=== PATIENT | female | born 1960 | race Caucasian/White ===

== ENCOUNTER → 2023-04-19 11:54 | Outpatient (BNVA) | payer OTHER, SELFPAY | PROVIDERS: Visit Provider Nurse Practitioner Family | DX: R39.9 Unspecified symptoms and signs involving the genitourinary system (principal) | CPT/HCPCS: 81000; 87086 ==

== ENCOUNTER 2024-04-03 05:28 | Emergency (ER) | payer OTHER, SELFPAY ==
[2024-04-03 05:32] VITALS: BP 162/91; PULSE 74; RESP 16; TEMP 36.8; O2SAT 99; BMI 27.4
--- NOTE | 2024-04-03 05:42 | CTR_ITS ---
PROCEDURE INFORMATION: Exam: CT Abdomen And Pelvis Without Contrast Exam date and time: 04/03/2024 5:51 AM Age: 63 years old Clinical indication: Abdominal pain; Right; Prior surgery; Surgery date: 6+ months; Surgery type: Gastric bypass; Patient HX: C/O RT flank pain with hematuria; Additional info: Right flank pain hematuria TECHNIQUE: Imaging protocol: Computed tomography of the abdomen and pelvis without contrast. Radiation optimization: All CT scans at this facility use at least one of these dose optimization techniques: automated exposure control; mA and/or kV adjustment per patient size (includes targeted exams where dose is matched to clinical indication); or iterative reconstruction. COMPARISON: No relevant prior studies available. RADIATION DOSE METRICS: Total DLP (mGy-cm): 568.62 FINDINGS: Lungs: Visualized portions lung bases included appear clear bilaterally. Liver: Noncontrasted liver unremarkable. Small elongated hypodense structure or collection along anterior aspect medial segment left liver lobe extending toward anterior falciform ligament region between anterior liver and anterior abdominal wall/lower chest wall measured about 3.3 x 1.0 x 3.9 cm, of uncertain cause, possibly small loculated fluid collection, exophytic or partially exophytic capsular or pericapsular lesion or collection of liver, or other process. Otherwise, no large free abdominal or pelvic fluid collections seen. No free intraperitoneal air seen. Gallbladder and bile ducts: Cholelithiasis with evidence of at least 1 large gallstone within gallbladder. Possible mild wall thickening of gallbladder. No obvious pericholecystic fluid seen. Common duct appears prominent measured at perhaps 10-11 mm across. Mild prominence main, central intrahepatic bile ducts. Pancreas: Noncontrasted pancreas appears perhaps slightly atrophic, fatty. Spleen: Noncontrasted spleen unremarkable. Adrenal glands: Noncontrasted adrenals unremarkable. Kidneys and ureters: No calcific stone seen of visualized portions kidneys, ureters bilaterally, nor urinary bladder. Portions of ureters not well visualized. Perhaps minimal relative dilation right renal collecting system, right renal pelvis, portions of right ureter, and vesicoureteral reflux, recently passed stone, or other process possible. Suggestion of mild wall thickening right renal pelvis, right ureter. Correlate for pyeloureteritis, or other process. No perinephric stranding seen bilaterally. Tiny hypodense focus lower left kidney, not otherwise further characterized. Stomach and bowel: Diverticula of colon without current radiographic evidence of acute diverticulitis. Postoperative changes stomach. Moderate stool and gas of the colon. Bowel pattern appears nonobstructive. Appendix: Appendix not distinctly identified. No obvious acute appendicitis seen. Intraperitoneal space: Small elongated hypodense structure or collection along anterior aspect medial segment left liver lobe extending toward anterior falciform ligament region between anterior liver and anterior abdominal wall/lower chest wall measured about 3.3 x 1.0 x 3.9 cm, of uncertain cause, possibly small loculated fluid collection, exophytic or partially exophytic capsular or pericapsular lesion or collection of liver, or other process. Otherwise, no large free abdominal or pelvic fluid collections seen. No free intraperitoneal air seen. Vasculature: Atherosclerotic disease. No aneurysm seen abdominal aorta. Lymph nodes: Scattered small lymph nodes, nonspecific. Urinary bladder: Urinary bladder appears partly filled. Evidence of wall thickening of urinary bladder. Reproductive: Uterus not identified. Correlate for prior hysterectomy other process. Bones/joints: Degenerative changes spine. Soft tissues: Small fat containing umbilical/paraumbilical hernia. CT/CT kidney stone [id number] IMPRESSION: 1. No calcific stone seen of visualized portions kidneys, ureters bilaterally, nor urinary bladder. Portions of ureters not well visualized. Perhaps minimal relative dilation right renal collecting system, right renal pelvis, portions of right ureter, and vesicoureteral reflux, recently passed stone, or other process possible. Suggestion of mild wall thickening right renal pelvis, right ureter. Correlate for pyeloureteritis, or other process. 2. Wall thickening urinary bladder. Correlate for infection inflammation, cystitis, neoplasm, or other process. 3. Cholelithiasis. Possible wall thickening gallbladder. Prominence of common duct. Ultrasound scan may be helpful, if indicated. 4. Small elongated hypodense structure or collection along anterior aspect medial segment left liver lobe extending toward anterior falciform ligament region between anterior liver and anterior abdominal wall/lower chest wall measured about 3.3 x 1.0 x 3.9 cm, of uncertain cause, possibly small loculated fluid collection, exophytic or partially exophytic capsular or pericapsular lesion or collection of liver, or other process. 5. Diverticula of colon without current radiographic evidence of acute diverticulitis. 6. Please see body of report for additional findings.
--- NOTE | 2024-04-03 05:51 | W.ED.FEMALGU ---
Documented by User: Roberto Fulton DO 04/03/24 20:40 HPI - Female Genitourinary General: Chief complaint: Urogenital-Female Stated complaint: blood urine clots pressure back pain r side Time Seen by Provider: 04/03/24 05:42 History of Present Illness: 63-year-old female with a history of kidney stones and kidney infections. She presents with right sided flank, lower back, and pelvic pain since yesterday. She noted around 2 AM that she had blood in her urine. She passed some clots this morning, bit later. No fever. No vomiting. Rates her pain at an 8. She took Tylenol at home with mild improvement. She has a history of multiple belly surgeries as well. Associated symptoms: Reports abdominal pain; Deny headache(s) or nausea Review of Systems Const: Denies: fever(s), chills or body aches Eyes: Denies: change in vision Card: Denies: chest pain or palpitations Resp: Denies: dyspnea, productive cough, non-productive cough or wheezing GI: Reports: abdominal pain; Denies: nausea, vomiting, diarrhea or hematochezia : Reports: flank pain, difficulty voiding, dysuria, urinary frequency and hematuria Musc: Reports: back pain Skin/Breast: Denies: rash Neuro: Denies: headache(s), weakness in extremities, dizziness or confusion Physical Exam Const: COMMON NORMALS: no acute distress GENERAL APPEARANCE: cooperative; not ill appearing and not frail appearing HENMT: COMMON NORMALS: normocephalic, atraumatic and Normal external nose present HEAD & SCALP: normocephalic and atraumatic FACE & SINUS: normal facial exam and face symmetric NOSE: Normal external nose present Eye: COMMON NORMALS: Equal, round and reactive pupils present and EOMs intact bilaterally PUPIL: Yes Equal, round and reactive pupils present Neck/C-Spine: GENERAL: Yes trachea midline Chest: CHEST: Yes Symmetrical chest wall rise Resp: COMMON NORMALS: normal respiratory effort, No retractions, No use of accessory muscles and clear to auscultation bilaterally AUSCULTATION: clear to auscultation bilaterally Cardio: COMMON NORMALS: regular rate and regular rhythm RATE: regular rate RHYTHM: regular rhythm GI: COMMON NORMALS: Normal to inspection, nondistended, normoactive bowel sounds present PALPATION: Yes Tenderness to palpation present (GI) Details: RLQ : BLADDER/KIDNEY EXAM: Yes CVA tenderness on the right Back/Pelvis: GENERAL BACK: Yes CVA tenderness Extremity: COMMON NORMALS: no pedal edema Neuro: VALDEMAR COMA SCALE: document GCS findings [place] coma scale eye opening: Spontaneous [place] coma scale verbal response: Orientated Valdemar coma scale motor response: Obey commands [place] coma scale total score: 15 SENSORY EXAM: Yes extremities (intact) Psych: COMMON NORMALS: speech normal SPEECH: Yes normal speech Skin: COMMON NORMALS: no rashes or lesions noted GENERAL SKIN EXAM: no rashes or lesions noted Course Vital Signs: Vital signs: Vital Signs Temperature 98.2 F 04/03/24 09:10 Pulse Rate 70 04/03/24 09:10 Respiratory Rate 15 04/03/24 09:10 Blood Pressure 162/91 04/03/24 09:10 Pulse Oximetry 94 04/03/24 09:10 Oxygen Delivery Me thod Room Air 04/03/24 05:32 MDM - Female Medical Decision Making 63-year-old female with right-sided flank, lower back, and pelvic pain. She is afebrile. She has a history of hematuria as well. Urinalysis, laboratory and CT are pending. She will be checked out at shift change. Lab Data 04/03/24 05:45 04/03/24 06:05 Radiology Impressions Abdomen/Pelvis CT 04/03/24 05:42 IMPRESSION: 1. No calcific stone seen of visualized portions kidneys, ureters bilaterally, nor urinary bladder. Portions of ureters not well visualized. Perhaps minimal relative dilation right renal collecting system, right renal pelvis, portions of right ureter, and vesicoureteral reflux, recently passed stone, or other process possible. Suggestion of mild wall thickening right renal pelvis, right ureter. Correlate for pyeloureteritis, or other process. 2. Wall thickening urinary bladder. Correlate for infection inflammation, cystitis, neoplasm, or other process. 3. Cholelithiasis. Possible wall thickening gallbladder. Prominence of common duct. Ultrasound scan may be helpful, if indicated. 4. Small elongated hypodense structure or collection along anterior aspect medial segment left liver lobe extending toward anterior falciform ligament region between anterior liver and anterior abdominal wall/lower chest wall measured about 3.3 x 1.0 x 3.9 cm, of uncertain cause, possibly small loculated fluid collection, exophytic or partially exophytic capsular or pericapsular lesion or collection of liver, or other process. 5. Diverticula of colon without current radiographic evidence of acute diverticulitis. 6. Please see body of report for additional findings. Laboratory Results WBC 12.38 10^3/uL (3.29-11.43) H 04/03/24 05:45 RBC 4.25 10^6/uL (3.85-5.65) 04/03/24 05:45 Hgb 13.00 g/dL (11.27-16.99) 04/03/24 05:45 Hct 40.3 % (36-47) 04/03/24 05:45 MCV 94.8 fl (85-98) 04/03/24 05:45 MCH 30.6 pg (27-33) 04/03/24 05:45 MCHC 32.3 g/dL (30-55) 04/03/24 05:45 RDW 13.6 % (12.1-15.1) 04/03/24 05:45 Plt Count 254 10^3/cmm (157-399) 04/03/24 05:45 MPV 9.3 fL (7.4-10.4) 04/03/24 05:45 Neut % (Auto) 67.5 % 04/03/24 05:45 Lymph % (Auto) 21.1 % 04/03/24 05:45 Hawkins % (Auto) 6.9 % 04/03/24 05:45 Eos % (Auto) 3.5 % 04/03/24 05:45 Baso % (Auto) 0.6 % 04/03/24 05:45 Neut # (Auto) 8.37 10^3/uL (1.8-7.7) H 04/03/24 05:45 Lymph # (Auto) 2.6 10^3/uL (0.8-4.8) 04/03/24 05:45 Hawkins # (Auto) 0.9 10^3/uL (0.2-0.9) 04/03/24 05:45 Eos # (Auto) 0.4 10^3/uL (0.0-0.8) 04/03/24 05:45 Baso # (Auto) 0.1 10^3/uL (0.0-0.1) 04/03/24 05:45 Nucleated RBC % (auto) 0 % 04/03/24 05:45 Nucleated RBCs # 0.0 /100WBC 04/03/24 05:45 Sodium 136 mmol/L (136-145) 04/03/24 06:05 Potassium 4.0 mmol/L (3.5-5.1) 04/03/24 06:05 Chloride 102 mmol/L (98-107) 04/03/24 06:05 Carbon Dioxide 26 mmol/L (22-29) 04/03/24 06:05 Anion Gap 12.0 (5-19) 04/03/24 06:05 BUN 13 mg/dL (8-23) 04/03/24 06:05 Creatinine 0.5 mg/dL (0.5-0.9) 04/03/24 06:05 GFR Calculation 124.6 mL/min (90-130) 04/03/24 06:05 Glucose 99 mg/dL (65-115) 04/03/24 06:05 Calculated Osmolality 282 mOsm/kg (285-295) L 04/03/24 06:05 Calcium 8.9 mg/dL (8.5-10.5) 04/03/24 06:05 Total Bilirubin 0.2 mg/dL (0.15-1.2) 04/03/24 06:05 AST 23 U/L (0-32) 04/03/24 06:05 ALT 21 U/L (0-33) 04/03/24 06:05 Alkaline Phosphatase 100 U/L (35-105) 04/03/24 06:05 C-Reactive Protein 3.0 mg/L (0.0-4.9) 04/03/24 06:05 Total Protein 6.4 g/dL (6.6-8.7) L 04/03/24 06:05 Albumin 3.9 g/dL (3.5-5.2) 04/03/24 06:05 Globulin 2.5 g/dL (1.3-4.6) 04/03/24 06:05 Lipase 25 U/L (13-60) 04/03/24 06:05 Urine Color Yellow (Yellow) 04/03/24 05:45 Urine Appearance Cloudy (CLEAR) A 04/03/24 05:45 Urine pH 6.5 (5-7) 04/03/24 05:45 Ur Specific [place] 1.005 (1.005-1.030) 04/03/24 05:45 Urine Protein 1+ (Negative) H 04/03/24 05:45 Urine Glucose (UA) Norm (Normal) 04/03/24 05:45 Urine Ketones Negative (Negative) 04/03/24 05:45 Urine Blood 3+ (Negative) H 04/03/24 05:45 Urine Nitrate Negative (Negative) 04/03/24 05:45 Urine Bilirubin Neg (Negative) 04/03/24 05:45 Urine Urobilinogen Neg mg/dL (Negative) 04/03/24 05:45 Ur Leukocyte Esterase 2+ (Negative) H 04/03/24 05:45 Urine RBC 5-10 /hpf (0-2) H 04/03/24 05:45 Urine WBC 25-40 /hpf (0-5) H 04/03/24 05:45 Ur Squamous Epith Cells 0-4 /hpf (0-5) H 04/03/24 05:45 Amorphous Sediment Not Reportable 04/03/24 05:45 Urine Bacteria 1+ /hpf (NONE) H 04/03/24 05:45 Urine Mucus Trace /hpf 04/03/24 05:45 Discharge Plan Discharge Patient Disposition: Home Clinical Impression: Cystitis Condition: Stable Prescriptions: New Cipro 250 mg tablet 250 mg PO BID Qty: 14 0RF hydrocodone-acetaminophen 5-325 mg tablet 1 tab PO Q6H PRN (Reason: pain) Qty: 10 0RF No Action azithromycin 500 mg tablet 500 mg PO DAILY 5 Days Qty: 5 0RF naproxen sodium [Aleve] 220 mg capsule 220 mg PO Q12H PRN Discharge Orders: Discharge ED (Routine); Ordered 04/03/24 Ordered By: Jimmy Schmidt Referrals: Yoko Blake DO [Primary Care Provider] - Discharge Diet: Usual diet Discharge Activity: Increase activity as tolerated Patient Instructions: Urinary Tract Infection in Women (ED), Opioid Safety, Pain Management Activity Restrictions/Additional Instructions: Thank you for choosing [facility] for your healthcare needs today. It is very important that you follow up as instructed or that you return to the Emergency Department should you have concerns or if your condition changes or worsens in any way. You are found to have a bladder infection. There is no sign of any stones in the kidneys or ureters. Recommend you start oral antibiotic 1 pill twice a day take your first pill this morning. Use pain medications as needed. Coding Level of Care Code ED Practice Performance Manager for [facility] Documented by User: Jimmy Schmidt DO 04/03/24 08:54 HPI - Female Genitourinary General: Chief complaint: Urogenital-Female Stated complaint: blood urine clots pressure back pain r side Time Seen by Provider: 04/03/24 05:42 Physical Exam Neuro: VALDEMAR COMA SCALE: document GCS findings Valdemar coma scale total score: 15 Course Vital Signs: Vital signs: Vital Signs Temperature 98.2 F 04/03/24 09:10 Pulse Rate 70 04/03/24 09:10 Respiratory Rate 15 04/03/24 09:10 Blood Pressure 162/91 04/03/24 09:10 Pulse Oximetry 94 04/03/24 09:10 Oxygen Delivery Me thod Room Air 04/03/24 05:32 MDM - Female Medical Decision Making 63-year-old female with right-sided flank, lower back, and pelvic pain. She is afebrile. She has a history of hematuria as well. Urinalysis, laboratory and CT are pending. She will be checked out at shift change. Care assumed at change of shift. CT completed no sign of ureteral obstruction, no hydronephrosis. Patient does have cystitis. Dr. Fulton had ordered ceftriaxone. Discharge home on Cipro 250 p.o. twice daily. She is having quite a bit of flank pain. Hydrocodone as needed for pain increase fluids return if has worsening problems. Medical Records I reviewed the patient's medical records. Lab Data I reviewed the patient's lab results. 04/03/24 05:45 04/03/24 06:05 Radiology Impressions Abdomen/Pelvis CT 04/03/24 05:42 IMPRESSION: 1. No calcific stone seen of visualized portions kidneys, ureters bilaterally, nor urinary bladder. Portions of ureters not well visualized. Perhaps minimal relative dilation right renal collecting system, right renal pelvis, portions of right ureter, and vesicoureteral reflux, recently passed stone, or other process possible. Suggestion of mild wall thickening right renal pelvis, right ureter. Correlate for pyeloureteritis, or other process. 2. Wall thickening urinary bladder. Correlate for infection inflammation, cystitis, neoplasm, or other process. 3. Cholelithiasis. Possible wall thickening gallbladder. Prominence of common duct. Ultrasound scan may be helpful, if indicated. 4. Small elongated hypodense structure or collection along anterior aspect medial segment left liver lobe extending toward anterior falciform ligament region between anterior liver and anterior abdominal wall/lower chest wall measured about 3.3 x 1.0 x 3.9 cm, of uncertain cause, possibly small loculated fluid collection, exophytic or partially exophytic capsular or pericapsular lesion or collection of liver, or other process. 5. Diverticula of colon without current radiographic evidence of acute diverticulitis. 6. Please see body of report for additional findings. Laboratory Results WBC 12.38 10^3/uL (3.29-11.43) H 04/03/24 05:45 RBC 4.25 10^6/uL (3.85-5.65) 04/03/24 05:45 Hgb 13.00 g/dL (11.27-16.99) 04/03/24 05:45 Hct 40.3 % (36-47) 04/03/24 05:45 MCV 94.8 fl (85-98) 04/03/24 05:45 MCH 30.6 pg (27-33) 04/03/24 05:45 MCHC 32.3 g/dL (30-55) 04/03/24 05:45 RDW 13.6 % (12.1-15.1) 04/03/24 05:45 Plt Count 254 10^3/cmm (157-399) 04/03/24 05:45 MPV 9.3 fL (7.4-10.4) 04/03/24 05:45 Neut % (Auto) 67.5 % 04/03/24 05:45 Lymph % (Auto) 21.1 % 04/03/24 05:45 Hawkins % (Auto) 6.9 % 04/03/24 05:45 Eos % (Auto) 3.5 % 04/03/24 05:45 Baso % (Auto) 0.6 % 04/03/24 05:45 Neut # (Auto) 8.37 10^3/uL (1.8-7.7) H 04/03/24 05:45 Lymph # (Auto) 2.6 10^3/uL (0.8-4.8) 04/03/24 05:45 Hawkins # (Auto) 0.9 10^3/uL (0.2-0.9) 04/03/24 05:45 Eos # (Auto) 0.4 10^3/uL (0.0-0.8) 04/03/24 05:45 Baso # (Auto) 0.1 10^3/uL (0.0-0.1) 04/03/24 05:45 Nucleated RBC % (auto) 0 % 04/03/24 05:45 Nucleated RBCs # 0.0 /100WBC 04/03/24 05:45 Sodium 136 mmol/L (136-145) 04/03/24 06:05 Potassium 4.0 mmol/L (3.5-5.1) 04/03/24 06:05 Chloride 102 mmol/L (98-107) 04/03/24 06:05 Carbon Dioxide 26 mmol/L (22-29) 04/03/24 06:05 Anion Gap 12.0 (5-19) 04/03/24 06:05 BUN 13 mg/dL (8-23) 04/03/24 06:05 Creatinine 0.5 mg/dL (0.5-0.9) 04/03/24 06:05 GFR Calculation 124.6 mL/min (90-130) 04/03/24 06:05 Glucose 99 mg/dL (65-115) 04/03/24 06:05 Calculated Osmolality 282 mOsm/kg (285-295) L 04/03/24 06:05 Calcium 8.9 mg/dL (8.5-10.5) 04/03/24 06:05 Total Bilirubin 0.2 mg/dL (0.15-1.2) 04/03/24 06:05 AST 23 U/L (0-32) 04/03/24 06:05 ALT 21 U/L (0-33) 04/03/24 06:05 Alkaline Phosphatase 100 U/L (35-105) 04/03/24 06:05 C-Reactive Protein 3.0 mg/L (0.0-4.9) 04/03/24 06:05 Total Protein 6.4 g/dL (6.6-8.7) L 04/03/24 06:05 Albumin 3.9 g/dL (3.5-5.2) 04/03/24 06:05 Globulin 2.5 g/dL (1.3-4.6) 04/03/24 06:05 Lipase 25 U/L (13-60) 04/03/24 06:05 Urine Color Yellow (Yellow) 04/03/24 05:45 Urine Appearance Cloudy (CLEAR) A 04/03/24 05:45 Urine pH 6.5 (5-7) 04/03/24 05:45 Ur Specific [place] 1.005 (1.005-1.030) 04/03/24 05:45 Urine Protein 1+ (Negative) H 04/03/24 05:45 Urine Glucose (UA) Norm (Normal) 04/03/24 05:45 Urine Ketones Negative (Negative) 04/03/24 05:45 Urine Blood 3+ (Negative) H 04/03/24 05:45 Urine Nitrate Negative (Negative) 04/03/24 05:45 Urine Bilirubin Neg (Negative) 04/03/24 05:45 Urine Urobilinogen Neg mg/dL (Negative) 04/03/24 05:45 Ur Leukocyte Esterase 2+ (Negative) H 04/03/24 05:45 Urine RBC 5-10 /hpf (0-2) H 04/03/24 05:45 Urine WBC 25-40 /hpf (0-5) H 04/03/24 05:45 Ur Squamous Epith Cells 0-4 /hpf (0-5) H 04/03/24 05:45 Amorphous Sediment Not Reportable 04/03/24 05:45 Urine Bacteria 1+ /hpf (NONE) H 04/03/24 05:45 Urine Mucus Trace /hpf 04/03/24 05:45 All radiology interpretation(s) finalized by discharge Discharge Plan Discharge Patient Disposition: Home Clinical Impression: Cystitis Condition: Stable Prescriptions: New Cipro 250 mg tablet 250 mg PO BID Qty: 14 0RF hydrocodone-acetaminophen 5-325 mg tablet 1 tab PO Q6H PRN (Reason: pain) Qty: 10 0RF No Action azithromycin 500 mg tablet 500 mg PO DAILY 5 Days Qty: 5 0RF naproxen sodium [Aleve] 220 mg capsule 220 mg PO Q12H PRN Discharge Orders: Discharge ED (Routine); Ordered 04/03/24 Ordered By: Jimmy Schmidt Referrals: Yoko Blake, [Primary Care Provider] - Discharge Diet: Usual diet Discharge Activity: Increase activity as tolerated Patient Instructions: Urinary Tract Infection in Women (ED), Opioid Safety, Pain Management Activity Restrictions/Additional Instructions: Thank you for choosing [facility] for your healthcare needs today. It is very important that you follow up as instructed or that you return to the Emergency Department should you have concerns or if your condition changes or worsens in any way. You are found to have a bladder infection. There is no sign of any stones in the kidneys or ureters. Recommend you start oral antibiotic 1 pill twice a day take your first pill this morning. Use pain medications as needed. Coding Level of Care Code ED Practice Performance Manager for [facility] Edmondson
[2024-04-03 05:56] LABS: Basophils # 0.1 10^3/uL (0.0-0.1); Basophils % 0.6 %; Eosinophils # 0.4 10^3/uL (0.0-0.8); Eosinophils % 3.5 %; Hematocrit 40.3 % (36-47); Lymphocytes # 2.6 10^3/uL (0.8-4.8); Lymphocytes % 21.1 %; Mean Corpuscular HGB Conc 32.3 g/dL (30-55); Mean Corpuscular Hemoglobin 30.6 pg (27-33); Mean Corpuscular Volume 94.8 fl (85-98); Mean Platelet Volume 9.3 fL (7.4-10.4); Monocytes # 0.9 10^3/uL (0.2-0.9); Monocytes % 6.9 %; Neutrophils # 8.37 10^3/uL (1.8-7.7); Neutrophils % 67.5 %; Nucleated Red Blood Cells % 0 %; Platelet Count 254 10^3/cmm (157-399); Red Blood Count 4.25 10^6/uL (3.85-5.65); Red Cell Distribution Width 13.6 % (12.1-15.1); White Blood Count 12.38 10^3/uL (3.29-11.43)
[2024-04-03 06:06] LABS: Add Urine Culture? Yes; Add Urine Microscopic? YES; Bacteria Urine 1+ /hpf; Bilirubin Urine Neg (Negative); Blood Urine 3+ (Negative); Glucose Urine UA Norm (Normal); Ketones Urine Negative (Negative); Leukocyte Esterase Urine 2+ (Negative); Mucus Urine TRACE /hpf; Nitrate Urine Negative (Negative); Protein Urine 1+ (Negative); Specific Gravity, Urine 1.005 (1.005-1.030); Squamous Epithelial Cell Urine 0-4 /hpf (0-5); Urine Appearance Cloudy (CLEAR); Urine Color Yellow (Yellow); Urobilinogen Urine Neg (Negative); WBC Urine 25-40 /hpf (0-5); pH Urine 6.5 (5-7)
[2024-04-03 06:11] VITALS: RESP 16; O2SAT 95
[2024-04-03] MEDS: morphine 4 mg/mL SDV 1 mL IVP (06:11)
[2024-04-03] MEDS: ondansetron 2 mg/ML SDV 2 mL 4 MG IVP (06:12)
[2024-04-03] MEDS: sodium chloride 0.9% 1,000 ML 999 ML IV (06:12)
[2024-04-03 06:17] VITALS: BP 162/91; PULSE 70; RESP 15; O2SAT 94
[2024-04-03 06:24] LABS: Alanine Aminotransferase 21 U/L (0-33); Albumin Level 3.9 g/dL (3.5-5.2); Alkaline Phosphatase 100 U/L (35-105); Aspartate Amino Transferase 23 U/L (0-32); Blood Urea Nitrogen 13 mg/dL (8-23); Calcium 8.9 mg/dL (8.5-10.5); Carbon Dioxide 26 mmol/L (22-29); Chloride 102 mmol/L (98-107); Creatinine Clr Calc Pharmacy 104.1302; Globulin 2.5 g/dL (1.3-4.6); Glomerular Filtration Rate 124.6 mL/min (90-130); Glucose 99 mg/dL (65-115); Lipase 25 U/L (13-60); Osmolality Calculated 282 mOsm/kg (285-295); Sodium 136 mmol/L (136-145); Total Bilirubin 0.2 mg/dL (0.15-1.2); Total Protein 6.4 g/dL (6.6-8.7)
[2024-04-03] MEDS: cefTRIAXone 1,000 MG in sodium chloride 0.9% (plus) 50 ML 100 MG IV (06:53)
[2024-04-03 09:10] VITALS: BP 162/91; PULSE 70; RESP 15; TEMP 36.8; O2SAT 94
== END 2024-04-03 09:12 | disposition home or self-care (01) ==
PROVIDERS: Emergency Medicine; Emergency Provider Family Medicine; PCP Family Medicine
DX: N30.90 Cystitis, unspecified without hematuria (principal)
CPT/HCPCS: 74176; 80053; 81001; 83690; 85025; 86140; 87086; 96361; 96365; 96375; 99285; J0696; J2270; J2405; J7030

== ENCOUNTER → 2024-08-18 08:54 | Outpatient (BNVA) | payer OTHER, SELFPAY | PROVIDERS: PCP Family Medicine; Visit Provider Specialist | DX: M25.561 Pain in right knee (principal); M25.562 Pain in left knee; M17.0 Bilateral primary osteoarthritis of knee; R03.0 Elevated blood-pressure reading, without diagnosis of hypertension | CPT/HCPCS: 73560; 73565 ==

== ENCOUNTER 2024-12-20 10:00 | Outpatient (CLI) | payer OTHER, SELFPAY ==
--- NOTE | 2024-12-20 | MM_ITS ---
WS: [id number] BILATERAL SCREENING DIGITAL TOMOSYNTHESIS MAMMOGRAM WITH CAD HISTORY: ANNUAL SCREENING COMPARISON: None available. Bilateral CC and MLO views with tomosynthesis and synthetic mammography submitted. Computer aided detection analyzed. Breast composition: There are scattered areas of fibroglandular density. No suspicious masses, microcalcifications or architectural distortion. MM/MM scr BI tomosynthesis [id number] IMPRESSION: BI-RADS: 1 - Negative. FOLLOW UP: 1 Year Follow-up
== END 2024-12-20 10:01 | disposition home or self-care (01) ==
PROVIDERS: PCP Family Medicine; Visit Provider Family Medicine
DX: Z12.31 Encounter for screening mammogram for malignant neoplasm of breast (principal); R92.323 Mammographic fibroglandular density, bilateral breasts
CPT/HCPCS: 77063; 77067

== ENCOUNTER → 2025-03-02 10:17 | Outpatient (BNVA) | payer OTHER, SELFPAY | PROVIDERS: PCP Family Medicine; Visit Provider Specialist | DX: M17.12 Unilateral primary osteoarthritis, left knee (principal) | CPT/HCPCS: 73560; 73565 ==

== ENCOUNTER → 2025-03-07 10:53 | Outpatient (BNVA) | payer OTHER, SELFPAY | PROVIDERS: PCP Family Medicine; Visit Provider Registered Nurse Neonatal Intensive Care | DX: R39.9 Unspecified symptoms and signs involving the genitourinary system (principal); N39.0 Urinary tract infection, site not specified | CPT/HCPCS: 81000; 87086 ==

== ENCOUNTER → 2025-04-04 07:39 | Outpatient (BNVA) | payer OTHER, SELFPAY | PROVIDERS: PCP Family Medicine; Visit Provider Family Medicine Adult Medicine | DX: R39.9 Unspecified symptoms and signs involving the genitourinary system (principal) | CPT/HCPCS: 81000 ==

== ENCOUNTER 2025-04-28 07:12 | Outpatient (CLI) | payer MEDICARE, OTHER, SELFPAY ==
--- NOTE | 2025-04-28 07:17 | XR_ITS ---
WS: [id number] Exam: XR knee RT 4V [id number] Date/Time of Exam: 04/28/2025 7:39 AM Reason For Exam: R KNEE PAIN Comparison 03/02/2025. Mild degenerative narrowing of the medial joint space. No fracture. No joint effusion. Normal soft tissues. XR/XR knee RT 4V [id number] IMPRESSION: 1. Mild degenerative change as noted above.
--- NOTE | 2025-04-28 07:30 | CT_ITS ---
WS: [id number] CT LEFT KNEE, NONCONTRAST [facility] TECHNIQUE: Noncontrast CT of the LEFT knee to include the LEFT hip and ankle. CLINICAL INFORMATION: PER [facility] PROTOCOL COMPARISON: None. DLP: 866.[address] scans at [facility] use at least one of these dose optimization techniques: automated exposure control; mA and/or kV adjustment per patient size (includes targeted exams where dose is matched to clinical indication); or iterative reconstruction. FINDINGS: Osteopenia. 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 Hypertrophic changes along the joint line. Small suprapatellar effusion. Vascular calcification. Sigmoid diverticulosis. CT/CT knee LT [facility] [id number] IMPRESSION: Images obtained for preoperative purposes.
== END 2025-04-28 07:13 | disposition home or self-care (01) ==
LOC: RAD 07:12
PROVIDERS: PCP Family Medicine; Visit Provider Specialist
DX: M17.0 Bilateral primary osteoarthritis of knee (principal); M25.561 Pain in right knee; M85.862 Other specified disorders of bone density and structure, left lower leg; M23.8X2 Other internal derangements of left knee; M25.461 Effusion, right knee; I70.292 Other atherosclerosis of native arteries of extremities, left leg; K57.30 Diverticulosis of large intestine without perforation or abscess without bleeding
CPT/HCPCS: 73564; 73700

== ENCOUNTER 2025-05-02 16:28 | Outpatient (CLI) | payer MEDICARE, OTHER, SELFPAY ==
--- NOTE | 2025-05-02 16:47 | US_ITS ---
WS: [id number] ULTRASOUND BLADDER CLINICAL INFORMATION: RECURRENT UTI COMPARISON: None. FINDINGS: Urinary bladder: Mild bladder wall thickening. Bladder is otherwise normal in appearance. Bladder volume Prevoid bladder: 9.7 cm x 10.2 cm x 5.8 cm; estimated volume 300.9 ml. Postvoid bladder: 5.0 cm x 4.9 cm x 4.3 cm; estimated volume 54.3 ml. US/US bladder [id number] IMPRESSION: Prevoid bladder volume 300 cc Post void bladder volume 54 cc
== END 2025-05-02 16:29 | disposition home or self-care (01) ==
LOC: RAD 16:29
PROVIDERS: PCP Family Medicine; Visit Provider Family Medicine
DX: Z87.440 Personal history of urinary (tract) infections (principal)
CPT/HCPCS: 76857

== ENCOUNTER 2025-05-13 08:18 | Outpatient (CLI) | payer MEDICARE, OTHER, SELFPAY ==
[2025-05-13 09:23] LABS: Hematocrit 42.5 % (36-47); Hemoglobin 13.70 g/dL (11.27-16.99); Mean Corpuscular HGB Conc 32.2 g/dL (30-55); Mean Corpuscular Hemoglobin 30.8 pg (27-33); Mean Corpuscular Volume 95.5 fl (85-98); Nucleated Red Blood Cells % 0 %; Platelet Count 293 10^3/cmm (157-399); Red Blood Count 4.45 10^6/uL (3.85-5.65); White Blood Count 4.87 10^3/uL (3.29-11.43)
[2025-05-13 09:25] LABS: Glucose Urine UA Negative (Normal); Nitrate Urine Negative (Negative); Specific Gravity, Urine 1.014 (1.005-1.030)
[2025-05-13 09:30] LABS: Add Urine Microscopic? YES
[2025-05-13 09:43] LABS: Alanine Aminotransferase 21 U/L (0-33); Albumin Level 4.3 g/dL (3.5-5.2); Alkaline Phosphatase 101 U/L (35-105); Anion Gap 14.1 (5-19); Aspartate Amino Transferase 24 U/L (0-32); Blood Urea Nitrogen 10 mg/dL (8-23); Calcium 9.4 mg/dL (8.5-10.5); Carbon Dioxide 30 mmol/L (22-29); Chloride 103 mmol/L (98-107); Globulin 2.6 g/dL (1.3-4.6); Glucose 78 mg/dL (65-115); Osmolality Calculated 294 mOsm/kg (285-295); Potassium 4.1 mmol/L (3.5-5.1); Sodium 143 mmol/L (136-145); Total Protein 6.9 g/dL (6.6-8.7)
== END 2025-05-13 08:19 | disposition home or self-care (01) ==
LOC: LAB 08:23
PROVIDERS: PCP Family Medicine; Visit Provider Specialist
DX: Z01.818 Encounter for other preprocedural examination (principal)
CPT/HCPCS: 36415; 80053; 81001; 85025

== ENCOUNTER → 2025-05-23 11:23 | Outpatient (BNVA) | payer MEDICARE, OTHER, SELFPAY | PROVIDERS: PCP Family Medicine; Visit Provider Family Medicine | DX: Z01.818 Encounter for other preprocedural examination (principal); I44.7 Left bundle-branch block, unspecified | CPT/HCPCS: 81003; 93005 ==

== ENCOUNTER 2025-06-07 10:08 | Observation (INO) | payer MEDICARE, OTHER, SELFPAY ==
[2025-06-07] VITALS (19 sets, daily range): BP systolic 91–167; BP diastolic 59–101; PULSE 53–99; RESP 14–22; TEMP 36.1–36.9; O2SAT 94–100; BMI 29.2
[2025-06-07] MEDS: acetaminophen 1,000 MG/100 ML PIGGYBACK 400 MG IV ×2 (06:33→14:34)
--- NOTE | 2025-06-07 06:43 | ANES.PREANE2 ---
Pre-Anesthetic Assessment Height/Weight: Height 1.57 m Weight 72.575 kg Temp Pulse Resp BP Pulse Ox O2 Del Method 97.5 F L 86 18 167/101 99 Room Air 06/07/25 06:11 06/07/25 06:11 06/07/25 06:11 06/07/25 06:11 06/07/25 06:11 06/07/25 06:22 Operation Date: 06/07/25 07:00 Proposed Procedures p LEFT Jeff Robot Total Knee Arthroplasty(Left) - Laura Martinez MD Familial anesthetic complications: PONV Was Beta Nay taken within 24 hours: N/A Was Clonidine taken within 24 hours: N/A Last intake: Intake Last Liquid Date 06/06/25 Last Liquid Time 19:00 Last Solid Date 06/06/25 Last Solid Time 19:00 Social No alcohol and No tobacco Exam alert, oriented x 3, clear to auscultation bilaterally and regular rate & rhythm Airway Dentition: other (permanent bridge) GI HX marely-en-y Anesthetic Plan ASA status: 2 Anesthesia: Regional (specify below) Other: spinal Risk of > 500 ml blood loss (7ml/kg in children): No Medications/Allergies Home Medications ?Medication ?Instructions ?Recorded ?Confirmed ?Last Taken ?Type esomeprazole magnesium 40 mg 40 mg PO DAILY 03/21/25 06/06/25 06/07/25 History capsule,delayed release (Nexium) acetaminophen 500 mg tablet 1,000 mg PO Q6H PRN Pain 05/23/25 06/06/25 06/06/25 History (Tylenol Extra Strength) cranberry fruit concentrate 250 mg 500 mg PO DAILY 05/23/25 06/06/25 06/06/25 History chewable tablet (Azo Cranberry) ferrous gluconate 240 mg (27 mg 240 mg PO DAILY 05/23/25 06/06/25 05/30/25 History iron) tablet (Ferate) lutein 20 mg capsule 20 mg PO DAILY 05/23/25 06/06/25 06/06/25 History multivitamin with iron 1 tab PO DAILY 05/23/25 06/06/25 06/06/25 History Allergies Allergy/AdvReac Type Severity Reaction Status Date / Time NSAIDS (Non-Steroidal Allergy Intermediate bleeding Verified 06/06/25 15:03 Anti-Inflamma tramadol Allergy Intermediate ALGY-Anaphy Verified 06/06/25 15:03 laxis aspirin Allergy throat Verified 06/06/25 15:03 closure cephalexin Allergy throat Verified 06/06/25 15:03 swelling/rash codeine Allergy ALGY-Anaphy Verified 06/06/25 15:03 laxis Current Medications Generic Name Dose Route Start Last Admin Trade Name Freq PRN Reason Stop Dose Admin Sodium Chloride 1,000 mls @ 30 mls/hr 06/07/25 06:00 06/07/25 06:31 Sodium Chloride 0.9% IV 06/08/25 05:59 30 mls/hr .Q24H JENIFFER Administration PFSH Anesthesia Medical History Recurrent UTI (urinary tract infection) Social History Smoking and tobacco/nicotine status: never used tobacco/nicotine
--- NOTE | 2025-06-07 07:03 | W.PM.OPSUD ---
Surgery/Procedure H&P Update DATE OF PROCEDURE: June 07, 2025 DATE H&P PERFORMED: 05/23/25 H&P UPDATE INFORMATION: I have reviewed H&P completed within last 30 days, I have examined patient prior to procedure, No changes to prior documentation, H&P is in [facility] EMR on date indicated and Risks and benefits of the procedure reviewed PLANNED PROCEDURE: Operation Date: 06/07/25 07:00 Proposed Procedures p LEFT Jeff Robot Total Knee Arthroplasty(Left) - Laura Martinez MD Related Problem List Diagnoses 1. Primary osteoarthritis of left knee: Qualifiers: Osteoarthritis type: primary
[2025-06-07] MEDS: tranexamic acid 1,000 mg/10mL SDV 1000 MG IV (07:25)
[2025-06-07] MEDS: BUPivacaine liposome 13.3 mg/mL SDV 20 mL 266 MG XX (08:20)
[2025-06-07] MEDS: BUPivacaine 0.5% INJ 30 mL XX (08:20)
--- NOTE | 2025-06-07 09:44 | P.OP_ITS ---
Operative Report Date of procedure: June 07, 2025 Pre-op diagnosis: Primary osteoarthritis left knee with slight varus deformity Post-op diagnosis: Primary osteoarthritis left knee with slight varus deformity Post-op findings: Near complete denudement of cartilage with large osteophytes and slight varus deformity Procedure done: Left total knee arthroplasty with Jeff guidance Implants: The [place] total knee system with a size 3 triathlon beaded cruciate retaining femur left, a triathlon titanium tibial component size 3 beaded, a triathlon X3 tibial bearing CS insert size 3 x 9 mm and a beaded triathlon titanium asymmetric patella size 29 x 9 mm Specimens removed/disposition: Bone, disposed off Pathology: None sent Surgeon: Laura Martinez MD Telegraphic Typewriter Mechanic: Nanda Stafford, nurse practitioner, who services were required for retraction, positioning, completion of the surgical procedure, and closure. Anesthesia: Spinal (With MAC, ASA 2) Estimated blood loss (mL): 100 Tourniquet time (min): 0 (Not utilized) IV fluids (mL): 1,900 Urine output (mL): 150 Complications: None Condition: stable Disposition: PACU (Then to floor for postoperative rehabilitation and pain management) Brief History: This 65-year-old woman presented with complaints of left knee pain unresponsive to conservative measures such as anti-inflammatories which she did not tolerate and injection therapies. The patient had significant limitations in her activities of daily living, and secondary to this, she wished to proceed with total knee arthroplasty. Risks and complications were discussed with her and consents were signed preoperatively. Questions were answered. Procedure: The patient was brought to the operating theater, and after undergoing adequate spinal anesthesia, ASA 2, the left lower extremity was prepped with Dura-Prep and draped in usual fashion following placement of a tourniquet high on the leg. The leg was then draped free.? Tourniquet was not elevated throughout the surgical procedure. Prior to commencement of the procedure, a surgical pause was performed, and at the time of the surgical pause, we confirmed the site and side of surgery. Additionally, we confirmed the appropriate and timely administration of preoperative antibiotics, Ancef 2 g. The availability of equipment was confirmed, and the patient's identity was verbalized as well. Following the surgical pause, an incision was made centering over the patella continuing proximally and distally as necessary to allow access to the knee joint. Prior to incision, assessment was made of the patient's leg, and there was noted to be a significant flexion contracture. Dissection continued through skin and soft tissues using a scalpel. Hemostasis was obtained using electrocautery. The skin incision was followed by a median parapatellar arthrotomy. The leg was extended, and the patella was able to be displaced laterally.? Appropriate arrays and markers were placed in appropriate position for use of the Jeff.? Preoperative planning had been accomplished and was discussed in detail with the [facility] car sales representative.? Intraoperative mapping of the femur and tibia was accomplished after the arrays were placed.? Internal markers were also placed.? Once we had accomplished the Jeff mapping, we began the appropriate resections for placement of the prosthesis.? The plan was for a cruciate retaining left total knee arthroplasty. Once appropriate mapping had been accomplished retraction was established using manual retraction by surgical technicians and also the [facility] leg positioner and retractors.? The knee was evaluated.? There was significant osteoarthritic change as well as a slight varus deformity without flexion contracture. Appropriate bone resection was accomplished using the Jeff.? The femur was sized to a size 3.? Following femoral cuts, attention was directed to the tibia.? Osteophytes were removed prior to this portion of the procedure.? We had performed a medial release at the beginning of the procedure to allow for placement of the array.? Proximal tibia was evaluated, and it was felt that appropriate size for the tibia was a size 3.? The size 3 tray was noted to fit nicely with good coverage.? Rim fit was accomplished with the size 3. A trial reduction was accomplished after osteophytes had been removed as well as the medial and lateral menisci.? We had removed the anterior cruciate ligament at the beginning of the case and preserved the posterior cruciate ligament.? Trial reduction was accomplished with a size 3 femoral cruciate retaining component, a size 3 tibial tray and a size 3 CS tibial bearing insert which was 9 mm thickness. With this insert, the knee was noted to be well-balanced. Alignment was felt to be appropriate as well. Trial components were removed after the femur had been drilled.? Prior to removal of the tibial tray which had been pinned in position with appropriate rotation as determined by the [facility] plan, we broached the tibia.? Subsequently, the 4 drill holes were made for the prosthetic component.? All trial components were removed, and the wound was irrigated.? Plans were made for insertion of the prosthetic components.? Prior to this, the patella was manually prepared.? After resection of the articular surface with the jigging system, it was measured and measured a 29 mm patella.? We resected approximately 6 mm of patella.? Patellar height was restored with the patellar component. Once again, the wound was irrigated. The Tritanium tibia was impacted into position.? The beaded femur was then impacted into position in a cementless fashion. The CS tibial insert was placed prior to placement of the femoral component. The patella was pressed into position with a patellar clamp.? Exparel was injected about the components deep and superficially.? The knee was then copiously irrigated with betadine and saline and suctioned dry. Attention was then directed to closure. Closure was accomplished with 0 Vicryl in the fascial tissues.? The suture line of 0 Vicryl was supplemented with strata fix, #1, with a running suture from proximal to distal and a second running stitch from distal to proximal.? This was followed by Surgiflo and vancomycin powder.? Following this, a 2-0 Strata Fix was used in the subcutaneous tissues, and the skin was closed with 3-0 Strata fix.? Care was taken to assure an excellent subcutaneous as well as skin closure.? A sterile dressing was then placed consisting of Dermabond Prineo, OpSite, ABD, sterile soft roll, and an Jhonnie wrap including over the foot. The patient was returned the Recovery Room in a satisfactory condition. X-rays were obtained and reviewed there.? The patient will be discharged to the floor for postoperative rehabilitation and pain management. Related Problem List Diagnoses 1. Primary osteoarthritis of left knee:
--- NOTE | 2025-06-07 10:05 | XR_ITS ---
WS: [id number] Left knee, AP and lateral views, 06/07/2025 Clinical Data: Status post left total knee arthroplasty Comparison: Both knees, 08/18/2024, AP both knees, left knee, 03/02/2025 Findings: There is a knee arthroplasty with components in good position. There is air in the joint space from the recent surgery. XR/XR knee LT 1-2V 16616 Impression: Left knee arthroplasty.
--- NOTE | 2025-06-07 10:50 | ANE.PACU2 ---
Inpatient post-anesthesia follow up: Airway intact: Yes Vital signs: Temperature 97.6 F Pulse Rate 88 Respiratory Rate 16 Blood Pressure 139/95 Pulse Oximetry 96 Oxygen Delivery Me thod Room Air Oxygen Flow Rate Fraction of Inspir ed Oxygen Hydration adequate: Yes Nausea and vomiting: No Pain level: 1 Mental status: Baseline
[2025-06-07] MEDS: oxyCODONE 5 mg IR Tab/Cap PO ×3 (12:07→20:30)
[2025-06-07] MEDS: chlorhexidine gluconate 0.12% Btl 473 mL 30 ML MUCOUS MEM ×3 (12:09→20:45)
[2025-06-07] MEDS: tranexamic acid 1,000 MG/100 ML PREMIX 600 MG IV (13:29)
[2025-06-07] MEDS: sennosides-docusate Tablet 2 TAB PO (17:26)
[2025-06-07] MEDS: APIXABAN 2.5 MG TABLET PO (17:27)
[2025-06-07] MEDS: mupirocin oint 22 gm 1 APPLIC NASAL (17:27)
[2025-06-08] VITALS (9 sets, daily range): BP systolic 125–157; BP diastolic 75–95; PULSE 79–88; RESP 16–18; TEMP 36.4–37; O2SAT 92–97; BMI 32.3
[2025-06-08] MEDS: oxyCODONE 5 mg IR Tab/Cap PO ×4 (01:47→13:59)
[2025-06-08 05:03] LABS: Hematocrit 34.4 % (36-47); Hemoglobin 11.20 g/dL (11.27-16.99); Mean Corpuscular HGB Conc 32.6 g/dL (30-55); Mean Corpuscular Hemoglobin 30.7 pg (27-33); Mean Corpuscular Volume 94.2 fl (85-98); Nucleated Red Blood Cells % 0 %; Platelet Count 247 10^3/cmm (157-399); Red Blood Count 3.65 10^6/uL (3.85-5.65); White Blood Count 11.90 10^3/uL (3.29-11.43)
[2025-06-08] MEDS: APIXABAN 2.5 MG TABLET PO (05:08)
[2025-06-08] MEDS: mupirocin oint 22 gm 1 APPLIC NASAL (05:08)
[2025-06-08] MEDS: sennosides-docusate Tablet 2 TAB PO (05:08)
[2025-06-08 05:23] LABS: Alanine Aminotransferase 17 U/L (0-33); Albumin Level 3.9 g/dL (3.5-5.2); Alkaline Phosphatase 92 U/L (35-105); Anion Gap 12.2 (5-19); Aspartate Amino Transferase 18 U/L (0-32); Blood Urea Nitrogen 8 mg/dL (8-23); Calcium 8.8 mg/dL (8.5-10.5); Carbon Dioxide 26 mmol/L (22-29); Chloride 100 mmol/L (98-107); Creatinine Clr Calc Pharmacy 68.8128; Globulin 2.3 g/dL (1.3-4.6); Glucose 132 mg/dL (65-115); Osmolality Calculated 278 mOsm/kg (285-295); Potassium 4.2 mmol/L (3.5-5.1); Sodium 134 mmol/L (136-145); Total Protein 6.2 g/dL (6.6-8.7)
[2025-06-08] MEDS: acetaminophen 1,000 MG/100 ML PIGGYBACK 400 MG IV (06:43)
[2025-06-08] MEDS: multivitamin therapeutic Tablet 1 TAB PO (08:14)
[2025-06-08] MEDS: ondansetron 2 mg/ML SDV 2 mL 4 MG IVP (08:16)
[2025-06-08] MEDS: chlorhexidine gluconate 0.12% Btl 473 mL 30 ML MUCOUS MEM ×2 (08:21→13:27)
--- NOTE | 2025-06-08 09:27 | PC.CHAP ---
Pastoral Care Encounter/Spiritual Assessment Type of Contact [] Declined infrastructure manager visit [] Patient/Family/Request visit [] Outpatient visit [] Follow-up visit [] Physician referral [] Code/Alert [x] Routine visit [] Staff referral [] Actively dying [] Patient sleeping [] Family support [] [] Out of room [] Palliative care [] [] Receiving care in room [] Pre-surgical visit [] Trauma [] Long length of stay [] ICU visit [] Other: Relational/Emotional Strength [x] Patient feels connected with others/family/visitors/staff [] Distress [] Loneliness/isolation [] Abandonment Spirituality of Patient [x] Person of Nina [] Attends Jew of their Nina [x] Believes in Prayer [] Reads Bible or Mormonism materials [] There are Spiritual issues to be addressed Bottle Dealer Interventions [x] Prayer [x] Active listening [] Non-anxious presence [x] Spiritual/emotional support [] Crisis/trauma care [] Spiritual counseling [] Bereavement support [] Provided bereavement packet [] Provided Bible/devotional materials [] Provided toy/stuffed animal, coloring book to patient or family member [] Provided Communion [] Anointing/[place] [] Salvation [x] Completed spiritual assessment [] Other: Impact on Illness or Injury [] Angry [] Fearful [] Anxious [] Often cries [] Exhaustion [] Unable to work [] Unable to attend confucianist [] Unable to walk/stand [] Unable to read [] Unable to drive [] Unable to eat/drink [] Unable to sleep [] Unable to be with family [] Patient intubated [] Other: Summary Time spent with patient 5 min
[2025-06-08 11:45] LABS: SARS Covid-2 Antigen Negative (Negative)
--- NOTE | 2025-06-08 13:26 | PM.DCS ---
Discharge Providers Date of Admission: 06/07/25 10:08 Date of Discharge: June 08, 2025 Attending Provider at Admission: Laura Martinez MD Attending Provider at Discharge: Laura Martinez MD Primary Care Provider: Yoko Blake DO Diagnoses at Discharge Discharge Diagnosis 1. Primary osteoarthritis of left knee: 2. Status post total left knee replacement not using cement: Reason for Visit Reason for Visit: M17.12 Brief History: This 65-year-old woman presented with complaints of left knee pain unresponsive to conservative measures such as anti-inflammatories which she did not tolerate and injection therapies. The patient had significant limitations in her activities of daily living, and secondary to this, she wished to proceed with total knee arthroplasty. Risks and complications were discussed with her and consents were signed preoperatively. Questions were answered. Hospital Course Hospital Course Patient was admitted following total knee arthroplasty under observation status overnight. She did well postoperatively. She worked with physical therapy, and although she was having a lot of pain, she had good progression with physical therapy. She had no evidence of DVT. The leg was not particularly swollen. Plans were therefore made for discharge. The patient works at [employer], and she had concerns regarding going home, and for this reason, she made arrangements to be discharged to the alf facility. Reportedly, this was outside of her insurance. Physical Exam Const: COMMON NORMALS: no acute distress, average body habitus, patient oriented x3 and alert GENERAL APPEARANCE: cooperative and comfortable ORIENTATION/CONSCIOUSNESS: Yes awake HENMT: COMMON NORMALS: normocephalic and atraumatic HEAD & SCALP: normocephalic and atraumatic Eye: GENERAL EYE: appearance normal, both eyes and all related structures Chest: COMMONS NORMALS: normal inspection of the chest Resp: COMMON NORMALS: normal respiratory effort EFFORT & INSPECTION: Yes able to speak in complete sentences and Yes symmetric chest movement Extremity: LEFT LOWER EXTREMITY: Yes knee joint (Large outer dressing was removed.) Left knee: Yes inspection (Minimal ecchymosis.), Yes palpation (Tender to palpation.), Yes ROM (Not evaluated.) and Yes neurovascular exam (Intact distally with no evidence of DVT.) Neuro: COMMON NORMALS: patient oriented x3 SENSORIUM/ORIENTATION: Yes alert Psych: COMMON NORMALS: mental status grossly normal APPEARANCE: Yes grossly normal ATTITUDE: Yes calm and Yes engaged ATTENTION/CONCENTRATION: Yes attention grossly intact Skin: COMMON NORMALS: no rashes or lesions noted GENERAL SKIN EXAM: no rashes or lesions noted Urinary Catheter Management: Josue: Cath Placed During This Visit: yes, but has since been removed by the nurse Reason for Continuing Indwelling Catheter: Required Immobilization for Trauma or Surgery or Anesthesia Urinary Catheter Date of Insertion: 06/07/25 Urinary Catheter Time of Insertion: 07:40 Date Urinary Catheter Removed: 06/08/25 Time Urinary Catheter Discontinued: 05:55 Discharge Data Studies Completed and Pending Completed Studies During Hospitalization Category Date Time Status XR knee LT 1-2V 75964 Routine Exams 06/07/25 10:05 Completed Radiology Impressions Knee X-Ray 06/07/25 10:05 Impression: Left knee arthroplasty. Laboratory Results WBC 11.90 10^3/uL (3.29-11.43) H 06/08/25 04:48 RBC 3.65 10^6/uL (3.85-5.65) L 06/08/25 04:48 Hgb 11.20 g/dL (11.27-16.99) L 06/08/25 04:48 Hct 34.4 % (36-47) L 06/08/25 04:48 MCV 94.2 fl (85-98) 06/08/25 04:48 MCH 30.7 pg (27-33) 06/08/25 04:48 MCHC 32.6 g/dL (30-55) 06/08/25 04:48 RDW 13.4 % (12.1-15.1) 06/08/25 04:48 Plt Count 247 10^3/cmm (157-399) 06/08/25 04:48 MPV 9.0 fL (7.4-10.4) 06/08/25 04:48 Neut % (Auto) 77.3 % 06/08/25 04:48 Lymph % (Auto) 12.9 % 06/08/25 04:48 [place] % (Auto) 9.1 % 06/08/25 04:48 Eos % (Auto) 0.0 % 06/08/25 04:48 Baso % (Auto) 0.2 % 06/08/25 04:48 Neut # (Auto) 9.21 10^3/uL (1.8-7.7) H 06/08/25 04:48 Lymph # (Auto) 1.5 10^3/uL (0.8-4.8) 06/08/25 04:48 [place] # (Auto) 1.1 10^3/uL (0.2-0.9) H 06/08/25 04:48 Eos # (Auto) 0.0 10^3/uL (0.0-0.8) 06/08/25 04:48 Baso # (Auto) 0.0 10^3/uL (0.0-0.1) 06/08/25 04:48 Nucleated RBC % (auto) 0 % 06/08/25 04:48 Nucleated RBCs # 0.0 /100WBC 06/08/25 04:48 Sodium 134 mmol/L (136-145) L 06/08/25 04:48 Potassium 4.2 mmol/L (3.5-5.1) 06/08/25 04:48 Chloride 100 mmol/L (98-107) 06/08/25 04:48 Carbon Dioxide 26 mmol/L (22-29) 06/08/25 04:48 Anion Gap 12.2 (5-19) 06/08/25 04:48 BUN 8 mg/dL (8-23) 06/08/25 04:48 Creatinine 0.5 mg/dL (0.5-0.9) 06/08/25 04:48 GFR Calculation 123.8 mL/min (90-130) 06/08/25 04:48 Glucose 132 mg/dL (65-115) H 06/08/25 04:48 Calculated Osmolality 278 mOsm/kg (285-295) L 06/08/25 04:48 Calcium 8.8 mg/dL (8.5-10.5) 06/08/25 04:48 Total Bilirubin 0.2 mg/dL (0.15-1.2) 06/08/25 04:48 AST 18 U/L (0-32) 06/08/25 04:48 ALT 17 U/L (0-33) 06/08/25 04:48 Alkaline Phosphatase 92 U/L (35-105) 06/08/25 04:48 Total Protein 6.2 g/dL (6.6-8.7) L 06/08/25 04:48 Albumin 3.9 g/dL (3.5-5.2) 06/08/25 04:48 Globulin 2.3 g/dL (1.3-4.6) 06/08/25 04:48 SARS-CoV-2 Ag (Rapid) Negative (Negative) 06/08/25 11:05 Vitals Last Vital Signs Temp 98.1 F 06/08/25 11:33 Pulse 82 06/08/25 11:33 Resp 17 06/08/25 11:33 BP 157/78 06/08/25 11:33 Pulse Ox 97 06/08/25 11:33 O2 Del Method Room Air 06/08/25 11:33 Discharge Plan Discharge Patient Disposition: Xfer SNF Condition: Stable Prescriptions: New oxycodone 5 mg Tablet 5 - 10 mg PO Q4H PRN (Reason: Moderate To Severe Pain) 7 Days Qty: 30 0RF Eliquis 2.5 mg Tablet 2.5 mg PO BID@0500,1700 30 Days Qty: 60 0RF Continued ferrous gluconate [Ferate] 240 mg (27 mg iron) tablet 240 mg PO DAILY multivitamin with iron Tablet 1 tab PO DAILY lutein 20 mg capsule 20 mg PO DAILY Rx Instructions: give with meal/snack Azo Cranberry 250 mg tablet,chewable 500 mg PO DAILY esomeprazole magnesium [Nexium] 40 mg capsule,delayed release(DR/EC) 40 mg PO DAILY Held acetaminophen [Tylenol Extra Strength] 500 mg tablet 1,000 mg PO Q6H PRN (Reason: Pain) Hold Instructions: May resume normal dosing once out of skilled facility Discharge Order = DC NOW: Discharge Order (Routine); Ordered 06/08/25 Ordered By: Laura Martinez Referrals: [facility] [Outside] Laura Martinez MD [Physician, Orthopedics] - 06/22/25 11:00 am Discharge Diet: Advance as tolerated and Usual diet Discharge Activity: Increase activity as tolerated, Limit activity as instructed, Use walker/crutches as instructed and As per PT/OT instructions Patient Instructions: Oxycodone, Rapid Release (By mouth), Apixaban (By mouth) (Eliquis), Acute Wound Care (DC), Precautions after Total Joint Replacement Surgery (DC), Total Knee Replacement (DC), Post Anesthesia Care Activity Restrictions/Additional Instructions: Ice and elevation to left lower extremity. You may shower, and get your knee wet, but if your dressing begins to leak, please remove it. Do not submerge your knee in standing water. Range of motion, strengthening, and gait training per physical therapy. Weightbearing as tolerated. Discharge Attestations Time Spent in Discharge Care*: greater than 30 min Specific Discharge Activities: educating patient, documenting/other paperwork and evaluating patient/reviewing data Quality Metrics Clinical Quality Measures [ No reported AMI, CVA or VTE this stay] Coding Level of Care Code Acute Code for Chg Fwd Diagnoses Primary osteoarthritis of left knee M17.12 Osteoarthritis type: primary Status post total left knee replacement not using cement Z96.652
== END 2025-06-08 15:46 | disposition skilled nursing facility (03) ==
LOC: MEDSURG 10:09
PROVIDERS: Orthopaedic Surgery; Admitting Provider Specialist; PCP Family Medicine; Visit Provider Specialist
PROC: 8E0Y0CZ Robotic Assisted Procedure of Lower Extremity, Open Approach (ICD-10-PCS; CPT 27447; principal; 2025-06-07 07:00)
DX: M17.12 Unilateral primary osteoarthritis, left knee (principal); K21.9 Gastro-esophageal reflux disease without esophagitis; R03.0 Elevated blood-pressure reading, without diagnosis of hypertension
CPT/HCPCS: 27447; 20985; 36415; 51702; 73560; 80053; 85025; 87426; 97110; 97116; 97161; 97165; 97530; A4216; C1776; G0378; J0131; J0666; J1100; J2250; J2371; J2405; J2704; J3373; J3490; J7030; J9999

== ENCOUNTER → 2025-06-17 09:35 | Outpatient (BNVA) | payer MEDICARE, OTHER, SELFPAY | PROVIDERS: PCP Family Medicine; Visit Provider Emergency Medicine | DX: R39.9 Unspecified symptoms and signs involving the genitourinary system (principal); R32 Unspecified urinary incontinence | CPT/HCPCS: 81000; 87077; 87086; 87184 ==

== ENCOUNTER → 2025-06-22 10:44 | Outpatient (BNVA) | payer MEDICARE, OTHER, SELFPAY | PROVIDERS: PCP Family Medicine; Visit Provider Specialist | DX: Z98.890 Other specified postprocedural states (principal); Z96.652 Presence of left artificial knee joint | CPT/HCPCS: 73560; 73565; 99024 ==

== ENCOUNTER → 2025-06-30 13:07 | Outpatient (BNVA) | payer MEDICARE, OTHER, SELFPAY | PROVIDERS: PCP Family Medicine; Visit Provider Emergency Medicine | DX: R39.9 Unspecified symptoms and signs involving the genitourinary system (principal) | CPT/HCPCS: 81000; 87086 ==

== ENCOUNTER → 2025-07-20 11:07 | Outpatient (BNVA) | payer MEDICARE, OTHER, SELFPAY | PROVIDERS: PCP Family Medicine; Visit Provider Specialist | DX: Z96.652 Presence of left artificial knee joint (principal); Z98.890 Other specified postprocedural states | CPT/HCPCS: 73560; 73565; 99024 ==

== ENCOUNTER → 2025-07-26 07:21 | Outpatient (BNVA) | payer MEDICARE, OTHER, SELFPAY | PROVIDERS: PCP Family Medicine; Visit Provider Nurse Practitioner | DX: R39.9 Unspecified symptoms and signs involving the genitourinary system (principal); N39.0 Urinary tract infection, site not specified | CPT/HCPCS: 81000; 87077; 87086; 87184 ==

== ENCOUNTER → 2025-08-09 08:55 | Outpatient (BNVA) | payer MEDICARE, OTHER, SELFPAY | PROVIDERS: PCP Family Medicine; Visit Provider Family Medicine | DX: R30.0 Dysuria (principal) | CPT/HCPCS: 81000 ==

== ENCOUNTER 2025-09-02 21:19 | Emergency (ER) | payer OTHER, MEDICARE, SELFPAY ==
--- OUTSIDE RECORDS SUMMARY | 2025-08-17 11:00 | XMS_ITS ---
Author Organization [employer] [facility] Address [address] [place] [address] Care Team Providers Care Coal Carrier Name Role Phone Lise Mina Primary Care Provider Rylanda RAMIRO Aj Unavailable [phone] REASON FOR VISIT Recurrent UTI's Encounters Encounter Location Date Provider Diagnosis [facility] [address] [place] [facility] [place] [address] 08/17/2025 RAMIRO SANDOVAL Plan Of Treatment No Information Progress Notes * Veronika GORDONDOB:1960 (65 yo F)Acc No.[id number]:08/17/2025 Progress Notes Patient: Dahlia SANDOVAL Veronika Proctor Provider: ELIAS Guajardo :1960 A ge:65 Y S ex:Female Date:08/17/2025 Address:[address] [place] [address], [address], [facility] Pcp:Lise Mina Subjective: * Chief Complaints: * 1 . Recurrent UTI's. * Medical History: Objective: * Vitals: Assessment: Plan: * Treatment: * Billing Information: * Visit Code: * Procedure Codes: * Electronic signature of RAMIRO SANDOVAL APRN on 09/02/2025 at 09:26 PM BLADE BONER Sign off status: Pending * Provider: ELIAS Guajardo Date: Generated for Breanne oshea/Blayne/Frankitting on: 11/02/2024 09:26 PM BLADE BONER
[2025-09-02 21:26] VITALS: BP 167/100; PULSE 67; RESP 16; TEMP 36.4; O2SAT 100; BMI 28.7
--- OUTSIDE RECORDS SUMMARY | 2025-09-02 21:28 | XMS_ITS | Patient Health Record ---
Author Organization [facility] Address [address] [place] [address] Care Team Providers Care Dry Finisher Name Role Phone Lise Mina Primary Care Provider RAMIRO Moraes [phone] Reason For Referral No Information Encounters Encounter Location Date Provider Diagnosis [facility] [address] [place] [address] 08/09/2025 RAMIRO SANDOVAL Plan Of Treatment No Information Insurance Providers Payer Name Payer Address Payer Phone Subscriber Number Group Number Insured Name Patient Relationship to Insured Coverage Start Date Coverage End Date [place] [address] [place] [id number] Veronika Gordon Self - patient is the insured
--- OUTSIDE RECORDS SUMMARY | 2025-09-02 21:28 | XMS_ITS | Patient Health Record ---
Author Organization [facility] Address [address] [facility] [place] [id number] Support Name Relationship Address Phone Veronika Gordon Guarantor Unknown [phone] Allergies Allergen (clinical drug ingredient) Drug/Non Drug Allergy documented on EMR Reaction Allergy Type Onset Date Status aspirin Aspirin Unknown Drug Allergy Active Reason For Referral No Information Medications Medication SIG (Take, Route, Frequency, Duration) Notes Start Date End Date Status Rizatriptan Benzoate 10 MG 1 tablet Orally PRN Active Plan Of Treatment No Information Insurance Providers Payer Name Payer Address Payer Phone Subscriber Number Group Number Insured Name Patient Relationship to Insured Coverage Start Date Coverage End Date [facility] [address] [address] [place] [address] [id number] Veronika Gordon Self - patient is the insured Medical (General) History Medical History History ICD Code Migraines
--- OUTSIDE RECORDS SUMMARY | 2025-09-02 21:28 | XMS_ITS | Data Portability ---
Author Organization [facility] Arron Petty [facility], [facility] Address [address] [place] [address] Care Team Providers Care Car Wash Supervisor Name Role Phone SAPNA CALVILLO Primary Care Provider Unavailabl e Assessment No assessment recorded. Plan of Treatment Reminders Order Date Submit Date Provider Last Modified By Organization Details Last Modified Time Details Appointments None recorded. Lab noninvasive colorectal cancer DNA + occult blood screening, QL, stool 2022 023 AVTAR Not available 4 05:00:54 vitamin B12, serum 2022 023 AVTAR [facility], [address] [address], [facility] [address] [place], [address], 3 08:24:50 Referral orthopedic surgeon referral 2022 023 astrange 2 [facility], [address] [place] [address], [id number], 3 14:50:05 Procedures None recorded. Surgeries None recorded. Imaging None recorded. Medication Orders None recorded. Patient TargetsNo targets recorded. Patient Instructions Encounter Date Encounter Id Patient Instructions Last Modified By Organization Details Last Modified Time 06/09/2025 [id number] Admitted after planned knee replacement for a few days of therapy. On Eliquis for DVT prophalayxis. Post-op hemoglobin 11. Doing well, planning to d/c home over the weekend. Will need home health eval and tx. [email or web address] Not available 06/09/2025 13:51:10 Reason for Referral Orthopedic Surgeon Referral for Osteoarthritis Referring Physician: Sapna aClvillo, Family Medicine, Encounter Date: 01/27/2023 Results Created Date Observation Date Name Description Value Unit Range Abnormal Flag Note LastModifiedBy Organization Detail LastModifiedTime 01/28/20 23 01/28/2023 VITAM IN B12 vitamin B12 1752 pg/mL 200-11 00 high Not Available [facility] [address] [place], [address], 01/28/2023 08:24:50 Result Notes None recorded. Problems Name Problem SNOMED Code Status Onset Date Resolution Date Notes Provider Name and Address Organization Details Recorded Time Migraine 43267872 Active 2022 PRO chan [facility] 3 14:39:38 Osteoarthr itis 869696036 Active 2022 Sapna Calvillo MD [address] [place] [address], [phone] , [facility] 3 15:01:58 Cholelithi asis without obstructio n 74476526 Active 2022 Sapna Calvillo MD [address] [place] [address], [phone] , [facility] 3 15:08:06 Post-disch arge follow-up 653273625 Active 2024 TABITHA chan [facility] 5 13:50:18 History of total knee arthroplas ty 5450954577552 Active 2024 TABITHA chan [facility] 5 13:50:19 Gastroesop hageal reflux disease without esophagiti s 834229423 Active 2024 TABITHA chan [facility] 5 13:50:20 Problem Notes None recorded. Procedures Surgical History Date Name Laterality Status Provider Name and Address Organization Details Recorded Time bariatric operative procedure completed PRO ARAUJO [facility] 01/27/2023 14:51:17 Imaging Results None recorded. Procedure Notes None recorded. Medical Equipment None Reported. Allergies Allergen ID Allergen Name Allergen Category Reaction Reaction Severity Criticality Documentation Date Start Date Code Code System Note Provider Name and Address Organization Details Recorded Time 1244 aspirin medicatio n Not available Not available Not available 01/27/2023 1191 RxNorm PRO chan [facility] 3 14:34:34 3301 cephalexi n medicatio n Not available Not available Not available 03/07/2023 2231 RxNorm PRO chan [facility] 3 13:47:07 Medications Name Sig Start Date Stop Date Status Note LastModified by Organization Details LastModified Time rizatriptan 10 mg tablet Take 1 tablet by oral route as needed. active Not Available Not Available No t Available pantoprazole 40 mg tablet,delayed release Take 1 tablet every day by oral route. active Not Available Not Available No t Available Multiple Vitamins 55 Plus 1 tab every day active Not Available Not Available No t Available Vitals Date Recorded Body height Body mass index (BMI) Body weight Oxygen saturation Oxygen saturation in Arterial blood by Pulse oximetry Heart rate Respiratory rate Body temperature Systolic And Diastolic Provider Name and Address Organization Details Last Updated DateTime 3 157.48 cm 28.2 kg/m2 34344.9 2 g 92 % 92 % 64 /min 20 /min 97.6 [degF] 98/70 mm[Hg] PRO ARAUJO [facility] 3 14:40:20 Social History None recorded. Functional Status None recorded. Mental Status None recorded. Family History Nothing Reported. Medical History No medical history recorded. Gynecological HistoryNo gynecological history recorded. Obstetrics History GPAL:G 0 P 0 0 0 0 Immunizations Vaccine Type Date Status Note Provider Nam e and Address Organization Details Recorded Time COVID-19 vaccine, vector-nr, rS-Ad26, PF, 0.5 mL 01/23/2021 completed Not Available [facility] 5 11:57:29 COVID-19, mRNA, LNP-S, bivalent, PF, 50 mcg/0.5 mL or 25mcg/0.25 mL dose 08/18/2021 completed Not Available [facility] 5 11:57:29 COVID-19, mRNA, LNP-S, bivalent, PF, 50 mcg/0.5 mL or 25mcg/0.25 mL dose 04/04/2022 completed Not Available [facility] 5 11:57:29 COVID-19, mRNA, LNP-S, bivalent, PF, 50 mcg/0.5 mL or 25mcg/0.25 mL dose 07/11/2022 completed Not Available [facility] 5 11:57:29 COVID-19, mRNA, LNP-S, PF, 50 mcg/0.5 mL 11/02/2024 completed Not Available [facility] 5 11:57:29 Past Encounters Encounter ID Performer Location Encounter Start Date Encounter Closed Date Diagnosis/Indication Diagnosis SNOMED-CT Code Diagnosis ICD10 Code Diagnosis IMO Codes Diagnosis Note [id number] Sapna Calvillo MD [facility] ([facility]) [address] [place] [phone] 01/27/2023 14:27:45 02/03/2023 08:08:19 Osteoarthritis 571233787 M19.90 Screening for malignant neoplasm of colon 491115989 Z12.11 patient does not feel she can do prep for colonoscop y , but she is willing to do cologuard History of bariatric surgical procedure 915415381 Z98.84 check labs Migraine 76317334 G43.90 9 continue as needed triptan Cholelithi asis without obstruction 29487164 K80.20 has known gallstone Adult heal th examination 331657029 Z00.00 BSE reviewed and recommende d . Reviewed calcium needs, exercise, and prevention of osteoporos is . Periodic colonoscop y screening recommende d . Reviewed normal menopause and menopausal symptoms . Mammogram recommende d yearly . [id number] Shady Borrero DO [facility] ([facility]) [address] [place] [phone] 06/09/2025 11:57:20 06/15/2025 17:12:29 Post-discharge follow-up 496558291 Z09 141239 History of total knee arthroplasty 6282158538 105 Z96.652 01438944 Gastroesop hageal reflux disease without esophagitis 311196788 K21.9 815276 Health Concerns Section Related Observation LastModified by Organization Detai ls LastModified Time None Recorded Concern Status LastModified by Organization Details LastModified Time None Recorded Advance Directives Directive None Recorded Payers Insurance Date Sequence Insurance Name Policy Number Policy Juan Covered Member ID Juan Member ID Guarantor Name 06/15/2025 [place] - [facility] (MEDICARE) Veronika Gordon [id number] Veronika Gordon 06/09/2025 1 *SELF PAY* De franco Gordon 06/09/2025 2 [employer] (MEDICARE SUPPLEMENT) Veronika Gordon [id number] Veronika Gordon 06/09/2025 1 [place] Veronika Gordon [id number] Veronika Gordon 06/09/2025 1 [employer] [employer] (EPO) Veronika Gordon [id number] Veronika Gordon Notes Date Note Type Note Provider Name and Address Organization Details Recorded Time 01/27/2023 text/html This is a 62 y/o female that presents today to establish care. She has history gastric bypass and is due for lab work.. The patient reports history of osteoarthritis. She states her knees are shot . she is now having pain in her knees and hips. She would like a referral to ortho to discuss joint replacement. She has history of migraines that she takes as needed triptan. she states she only needs it approximately 3 times a month. Sapna Calvillo MD [address] [place] [address], [phone], [facility] 01/27/2023 16:56:20 06/09/2025 text/html Care Management - GeneralReported by PatientHPIFor prognosis, patient reportsexpected outcome: improveandprognosis: good. For context, patient reportsnot current smoker.ROS as noted in the HPI new admit to SNF after knee replacement. Planning to d/c home over the weekend. Shady Borrero, DO [address] [place] [address], [phone], [facility] [place] 06/15/2025 13:39:42 OBGyn Episode No OBEpisode recorded.
[2025-09-02 21:57] LABS: Hematocrit 39.7 % (36-47); Hemoglobin 12.60 g/dL (11.27-16.99); Mean Corpuscular HGB Conc 31.7 g/dL (30-55); Mean Corpuscular Hemoglobin 30.7 pg (27-33); Mean Corpuscular Volume 96.6 fl (85-98); Nucleated Red Blood Cells % 0 %; Platelet Count 252 10^3/cmm (157-399); Red Blood Count 4.11 10^6/uL (3.85-5.65); White Blood Count 7.80 10^3/uL (3.29-11.43)
[2025-09-02 21:57] LABS: Glucose Urine UA Negative (Normal); Nitrate Urine Negative (Negative); Specific Gravity, Urine 1.005 (1.005-1.030)
[2025-09-02 22:02] LABS: Add Urine Microscopic? YES
[2025-09-02 22:18] LABS: Alanine Aminotransferase 24 U/L (0-33); Albumin Level 4.0 g/dL (3.5-5.2); Alkaline Phosphatase 98 U/L (35-105); Anion Gap 13.9 (5-19); Aspartate Amino Transferase 30 U/L (0-32); Blood Urea Nitrogen 12 mg/dL (8-23); Calcium 8.8 mg/dL (8.5-10.5); Carbon Dioxide 27 mmol/L (22-29); Chloride 100 mmol/L (98-107); Globulin 2.6 g/dL (1.3-4.6); Glucose 102 mg/dL (65-115); Osmolality Calculated 284 mOsm/kg (285-295); Potassium 3.9 mmol/L (3.5-5.1); Sodium 137 mmol/L (136-145); Total Protein 6.6 g/dL (6.6-8.7)
--- NOTE | 2025-09-02 23:03 | ED_ITS ---
HPI - Female Genitourinary 2 General: Chief complaint: Urogenital-Female Stated complaint: Thinks passed a kidney stone Time Seen by Provider: 09/02/25 22:04 History of Present Illness: Patient is a 65-year-old female who reports passing a kidney stone earlier today. She states she felt the stone passing and visualized it in the toilet. She is currently experiencing urinary symptoms including pressure with urination, frequency, and urinary incontinence that has developed over the last couple of days. Patient reports a history of chronic UTIs, with her most recent infection approximately two weeks ago, for which she completed a 10-day course of nitrofurantoin. She reports multiple UTIs over the past year, including episodes in June, December, and October. Patient reports back pain today, which improved after passing the kidney stone. She denies fever or vomiting. Patient states she was supposed to see a urologist for evaluation of possible dropped bladder or rectocele but has been unable to attend the appointment due to transportation issues. She reports a history of kidney stones beginning in 2022, which she attributes to high calcium supplementation following bariatric surgery in 2013. She has since discontinued calcium supplementation. Related Data Home Medications ?Medication ?Instructions ?Recorded ?Confirmed esomeprazole magnesium 40 mg 40 mg PO DAILY 03/21/25 1 10/25/24 capsule,delayed release (Nexium) acetaminophen 500 mg tablet 1,000 mg PO Q6H PRN Pain 0 05/23/25 08/25/25 (Tylenol Extra Strength) Held on 06/08/25. Instructions: May resume normal dosing once out of skilled facility cranberry fruit concentrate 250 mg 500 mg PO DAILY 02/1108/25/25 chewable tablet (Azo Cranberry) ferrous gluconate 240 mg (27 mg 240 mg PO DAILY 08/25/25 iron) tablet (Ferate) lutein 20 mg capsule 20 mg PO DAILY 05/23/2504/13 multivitamin with iron 1 tab PO DAILY 05/23/2504/13 Previous Rx's ?Medication ?Instructions ?Recorded trazodone 50 mg tablet See Rx Instructions PO .qhs #60 08/08/25 tabs fluconazole 150 mg tablet 150 mg PO Q3D 2 doses #2 tab s 08/09/25 prednisone 10 mg tablet 30 mg (3 x 10 mg) PO DAILY 5 days 08/25/25 #15 tabs ciprofloxacin HCl 500 mg tablet 500 mg PO BID #14 tabs 09/02/25 Allergies Allergy/AdvReac Type Severity Reaction Status Date / Time hydrocodone Allergy Intermediate ALGY-Rash Verified 08/25/25 13:13 NSAIDS (Non-Steroidal Allergy Intermediate bleeding Verified 08/25/25 13:13 Anti-Inflamma tramadol Allergy Intermediate ALGY-Anaphy Verified 08/25/25 13:13 laxis aspirin Allergy throat Verified 08/25/25 13:13 closure cephalexin Allergy throat Verified 08/25/25 13:13 swelling/rash PFS ED 2 PFSH: Medical History (Updated 09/02/25 @ 23:04 by Roberto Fulton DO) Kidney stones GERD (gastroesophageal reflux disease) Recurrent UTI (urinary tract infection) Surgical History History of foot surgery Right heel spur History of rhinoplasty for deviated septum History of laparoscopy History of tonsillectomy History of Sin-en-Y gastric bypass Status post total left knee replacement not using cement Date of procedure: June 07, 2025 Diagnosis: Primary osteoarthritis left knee with slight varus deformity Procedure done: Left total knee arthroplasty with Jeff guidance Implants: [employer] total knee system with a size 3 triathlon beaded cruciate retaining femur left, a triathlon titanium tibial component size 3 beaded, a triathlon X3 tibial bearing CS insert size 3 x 9 mm and a beaded triathlon titanium asymmetric patella size 29 x 9 mm History of partial hysterectomy Family History Grandfather Lung cancer Heart disease Grandmother Cancer Depression Heart disease Father Alzheimer's dementia Mother Heart disease Stroke Social History Smoking and tobacco/nicotine status: never used tobacco/nicotine Alcohol intake: current Alcohol intake frequency: holidays/special occasions only Substance/Drug Use: never Physical Exam 2 Const: COMMON NORMALS: no acute distress GENERAL APPEARANCE: cooperative; not ill appearing and not frail appearing HENMT: COMMON NORMALS: normocephalic, atraumatic and Normal external nose present HEAD & SCALP: normocephalic and atraumatic FACE & SINUS: normal facial exam and face symmetric NOSE: Normal external nose present Eye: COMMON NORMALS: Equal, round and reactive pupils present and EOMs intact bilaterally PUPIL: Yes Equal, round and reactive pupils present Neck/C-Spine: GENERAL: Yes trachea midline Chest: CHEST: Yes Symmetrical chest wall rise Resp: COMMON NORMALS: normal respiratory effort, No retractions, No use of accessory muscles and clear to auscultation bilaterally AUSCULTATION: clear to auscultation bilaterally Cardio: COMMON NORMALS: regular rate and regular rhythm RATE: regular rate RHYTHM: regular rhythm GI: COMMON NORMALS: Normal to inspection, nondistended, normoactive bowel sounds present Extremity: COMMON NORMALS: no pedal edema Neuro: VALDEMAR COMA SCALE: document GCS findings [place] coma scale eye opening: Spontaneous [place] coma scale verbal response: Orientated [place] coma scale motor response: Obey commands Valdemar coma scale total score: 15 S ENSORY EXAM: Yes extremities (intact) Psych: COMMON NORMALS: speech normal SPEECH: Yes normal speech Skin: COMMON NORMALS: no rashes or lesions noted GENERAL SKIN EXAM: no rashes or lesions noted Course 2 Vital Signs: Vital signs: Vital Signs Temperature 97.6 F 09/02/25 21:26 Pulse Rate 67 09/02/25 21:26 Respiratory Rate 16 09/02/25 21:26 Blood Pressure 167/100 09/02/25 21:26 Pulse Oximetry 100 09/02/25 21:26 Oxygen Delivery Me thod Room Air 09/02/25 21:26 MDM - Female Medical Decision Making Patient is hypertensive. Vitals are otherwise stable. She is afebrile. CBC is normal. BMP is normal. Urinalysis shows 2+ leukocyte esterase negative nitrates, but 51-100 white blood cells present. She has a history of E. coli mainly urinary tract infections. She was treated with nitrofurantoin last time which is a bacteriostatic antibiotic. She is allergic to cephalosporins. Will put her on ciprofloxacin. First dose here. Outpatient follow-up. Return for worsening symptoms. Lab Data 09/02/25 21:52 09/02/25 21:52 Laboratory Results WBC 7.80 10^3/uL (3.29-11.43) 09/02/25 21:52 RBC 4.11 10^6/uL (3.85-5.65) 09/02/25 21:52 Hgb 12.60 g/dL (11.27-16.99) 09/02/25 21:52 Hct 39.7 % (36-47) 09/02/25 21:52 MCV 96.6 fl (85-98) 09/02/25 21:52 MCH 30.7 pg (27-33) 09/02/25 21:52 MCHC 31.7 g/dL (30-55) 09/02/25 21:52 RDW 14.5 % (12.1-15.1) 09/02/25 21:52 Plt Count 252 10^3/cmm (157-399) 09/02/25 21:52 MPV 8.4 fL (7.4-10.4) 09/02/25 21:52 Neut % (Auto) 50.1 % 09/02/25 21:52 Lymph % (Auto) 32.3 % 09/02/25 21:52 [place] % (Auto) 9.6 % 09/02/25 21:52 Eos % (Auto) 7.1 % 09/02/25 21:52 Baso % (Auto) 0.6 % 09/02/25 21:52 Neut # (Auto) 3.91 10^3/uL (1.8-7.7) 09/02/25 21:52 Lymph # (Auto) 2.5 10^3/uL (0.8-4.8) 09/02/25 21:52 [place] # (Auto) 0.8 10^3/uL (0.2-0.9) 09/02/25 21:52 Eos # (Auto) 0.6 10^3/uL (0.0-0.8) 09/02/25 21:52 Baso # (Auto) 0.1 10^3/uL (0.0-0.1) 09/02/25 21:52 Nucleated RBC % (auto) 0 % 09/02/25 21:52 Nucleated RBCs # 0.0 /100WBC 09/02/25 21:52 Sodium 137 mmol/L (136-145) 09/02/25 21:52 Potassium 3.9 mmol/L (3.5-5.1) 09/02/25 21:52 Chloride 100 mmol/L (98-107) 09/02/25 21:52 Carbon Dioxide 27 mmol/L (22-29) 09/02/25 21:52 Anion Gap 13.9 (5-19) 09/02/25 21:52 BUN 12 mg/dL (8-23) 09/02/25 21:52 Creatinine 0.5 mg/dL (0.5-0.9) 09/02/25 21:52 GFR Calculation 123.8 mL/min (90-130) 09/02/25 21:52 Glucose 102 mg/dL (65-115) 09/02/25 21:52 Calculated Osmolality 284 mOsm/kg (285-295) L 09/02/25 21:52 Calcium 8.8 mg/dL (8.5-10.5) 09/02/25 21:52 Total Bilirubin 0.2 mg/dL (0.15-1.2) 09/02/25 21:52 AST 30 U/L (0-32) 09/02/25 21:52 ALT 24 U/L (0-33) 09/02/25 21:52 Alkaline Phosphatase 98 U/L (35-105) 09/02/25 21:52 Total Protein 6.6 g/dL (6.6-8.7) 09/02/25 21:52 Albumin 4.0 g/dL (3.5-5.2) 09/02/25 21:52 Globulin 2.6 g/dL (1.3-4.6) 09/02/25 21:52 Urine Color Yellow (Yellow) 09/02/25 21:45 Urine Appearance Clear (CLEAR) 09/02/25 21:45 Urine pH 6.5 (5-7) 09/02/25 21:45 Ur Specific [place] 1.005 (1.005-1.030) 09/02/25 21:45 Urine Protein Negative (Negative) 09/02/25 21:45 Urine Glucose (UA) Negative (Normal) 09/02/25 21:45 Urine Ketones Negative (Negative) 09/02/25 21:45 Urine Blood Negative (Negative) 09/02/25 21:45 Urine Nitrate Negative (Negative) 09/02/25 21:45 Urine Bilirubin Negative (Negative) 09/02/25 21:45 Urine Urobilinogen 0.2 mg/dL (Negative) 09/02/25 21:45 Ur Leukocyte Esterase 2+ (Negative) A 09/02/25 21:45 Urine RBC 0-2 /hpf (0-2) 09/02/25 21:45 Urine WBC 51-100 /hpf (0-5) H 09/02/25 21:45 Ur Squamous Epith Cells 0-5 /hpf (0-5) 09/02/25 21:45 Amorphous Sediment Not Reportable 09/02/25 21:45 Urine Bacteria None seen /hpf (NONE) 09/02/25 21:45 Hyaline Casts 0.40 /lpf 09/02/25 21:45 No radiology studies performed this visit Discharge Plan Discharge Patient Disposition: Home Clinical Impression: Recurrent UTI (urinary tract infection) Condition: Stable Prescriptions: New ciprofloxacin HCl 500 mg tablet 500 mg PO BID Qty: 14 0RF No Action ferrous gluconate [Ferate] 240 mg (27 mg iron) tablet 240 mg PO DAILY multivitamin with iron Tablet 1 tab PO DAILY lutein 20 mg capsule 20 mg PO DAILY Rx Instructions: give with meal/snack Azo Cranberry 250 mg tablet,chewable 500 mg PO DAILY acetaminophen [Tylenol Extra Strength] 500 mg tablet 1,000 mg PO Q6H PRN (Reason: Pain) prednisone 10 mg tablet 30 mg PO DAILY 5 Days Qty: 15 0RF esomeprazole magnesium [Nexium] 40 mg capsule,delayed release(DR/EC) 40 mg PO DAILY trazodone 50 mg tablet See Rx Instructions PO .qhs Qty: 60 0RF Rx Instructions: 1-2 pills po q hs orally QHS; fluconazole 150 mg tablet 150 mg PO Q3D Qty: 2 0RF Rx Instructions: may repeat second dose 72 hrs after first dose if symptoms persist Discharge Orders: Discharge ED (Routine); Ordered 09/02/25 Ordered By: Roberto Fulton Referrals: Lise Mina DO [Primary Care Provider, Family Practice] - 4-7 days Patient Instructions: Urinary Tract Infection in Women (ED), Opioid Safety, Pain Management, Patient Portal & Donte Instructions Activity Restrictions/Additional Instructions: Medication as directed. Return for fever greater than 100 ?F despite 3-4 doses of antibiotics, worsening pain, mental status changes, any other concerning symptoms. Follow-up with your doctor next week. Retest your urine to make sure you are clearing your infection. Print Language: Malay Coding Level of Care Code ED Medical Office Professional Instructor for Bartolo Edmondson
== END 2025-09-02 23:16 | disposition home or self-care (01) ==
PROVIDERS: Emergency Provider Emergency Medicine; PCP Family Medicine
DX: N39.0 Urinary tract infection, site not specified (principal)
CPT/HCPCS: 36415; 80053; 81001; 85025; 87086; 99283; J9999

== ENCOUNTER → 2025-09-08 09:20 | Outpatient (BNVA) | payer OTHER, MEDICARE, SELFPAY | PROVIDERS: PCP Family Medicine; Visit Provider Family Medicine | DX: Z13.6 Encounter for screening for cardiovascular disorders (principal); Z98.84 Bariatric surgery status; D50.9 Iron deficiency anemia, unspecified; E83.52 Hypercalcemia; E53.8 Deficiency of other specified B group vitamins | CPT/HCPCS: 80053; 80061; 82306; 82310; 82607; 82728; 83550; 83970; 84443; 84630; 85025 ==

== ENCOUNTER → 2025-09-12 13:44 | Outpatient (BNVA) | payer OTHER, MEDICARE, SELFPAY | PROVIDERS: PCP Family Medicine; Visit Provider Family Medicine | DX: R30.0 Dysuria (principal) | CPT/HCPCS: 81000; 87086 ==